=== PATIENT | female | born 1990 ===

== ENCOUNTER 2018-12-11 18:37 | Emergency (ER) | payer BC, MEDICAID ==
[2018-12-11] MEDS ORDERED: diphenhydrAMINE 25 MG CAP PO ONE (19:06)
[2018-12-11] MEDS ORDERED: diphenhydrAMINE 50 MG CAP PO ONE (19:07)
[2018-12-11] MEDS ORDERED: SULFAMET/TMP DS PREPACK#2 BTL TAKEHOME ONE (19:39)
== END 2018-12-11 20:10 | disposition home or self-care (01) ==
DX: L02.211 Cutaneous abscess of abdominal wall (principal); L03.311 Cellulitis of abdominal wall

== ENCOUNTER 2018-12-12 09:45 | Emergency (ER) | payer BC, MEDICAID | END 2018-12-12 10:05 | disposition home or self-care (01) | DX: L02.211 Cutaneous abscess of abdominal wall (principal); Z48.00 Encounter for change or removal of nonsurgical wound dressing ==

== ENCOUNTER 2018-12-21 06:41 | Emergency (ER) | payer BC, MEDICAID | END 2018-12-21 07:14 | disposition home or self-care (01) | DX: L27.0 Generalized skin eruption due to drugs and medicaments taken internally (principal) ==